=== PATIENT | female | born 1960 | race Caucasian/White ===

== ENCOUNTER 2023-11-01 00:37 | Emergency (ER) | payer OTHER ==
[~2023-11-01] VITALS: Ht 152.4 cm; Wt 88.5 kg
[2023-11-01 00:42] VITALS: BP 126/85; PULSE 76; RESP 19; TEMP 97.9; O2SAT 96
[2023-11-01] MEDS ORDERED: ALBUTEROL SULFATE/IPRATROPIU 3 ML SOL IH ONE (04:15)
[2023-11-01 04:17] VITALS: PULSE 68; RESP 24; O2SAT 97
[2023-11-01] MEDS ORDERED: ACETAMINOPHEN EXTRA STRENGTH 500 MG TAB PO ONE (04:40)
[2023-11-01] MEDS ORDERED: predniSONE 20 MG TAB PO ONE (04:40)
[2023-11-01 05:11] LABS: FLU A ANTIGEN negative (NEGATIVE); FLU B ANTIGEN NEGATIVE (NEGATIVE)
[2023-11-01 05:48] VITALS: BP 123/71; PULSE 65; RESP 16; TEMP 97.8; O2SAT 97
[2023-11-01] MEDS ORDERED: PRED20TA5 PO (06:07)
[2023-11-01] MEDS ORDERED: AZIT250T4 PO (06:07)
[2023-11-01] MEDS ORDERED: ALBU0.0912 IH (06:07)
== END 2023-11-01 06:24 | disposition home or self-care (01) ==
LOC: MED 00:37
DX: J45.901 Unspecified asthma with (acute) exacerbation (principal); J20.9 Acute bronchitis, unspecified; Z20.822 Contact with and (suspected) exposure to COVID-19; I10 Essential (primary) hypertension; Z79.899 Other long term (current) drug therapy; Z79.2 Long term (current) use of antibiotics; Z88.6 Allergy status to analgesic agent
CPT/HCPCS: 71045; 87426; 87804; 94640; 99284; J7512

== ENCOUNTER 2023-11-08 13:55 | Emergency (ER) | payer OTHER ==
[~2023-11-08] VITALS: Ht 152.4 cm; Wt 96.6 kg
[~2023-11-08 13:55] MED LIST: ALBU0.0912 IH; AZIT250T4 PO; PRED20TA5 PO
[2023-11-08 14:15] VITALS: BP 126/83; PULSE 78; RESP 20; TEMP 97.8; O2SAT 95
[2023-11-08] MEDS ORDERED: IBUP-1842 PO (15:52)
[2023-11-08] MEDS ORDERED: BENZ200C4 PO (15:52)
[2023-11-08] MEDS ORDERED: ACET-10509 PO (15:52)
[2023-11-08 16:49] LABS: FLU A ANTIGEN negative (NEGATIVE); FLU B ANTIGEN NEGATIVE (NEGATIVE)
== END 2023-11-08 16:04 | disposition home or self-care (01) ==
LOC: MED 13:55
DX: J06.9 Acute upper respiratory infection, unspecified (principal); Z20.822 Contact with and (suspected) exposure to COVID-19; J45.909 Unspecified asthma, uncomplicated; E11.9 Type 2 diabetes mellitus without complications; I10 Essential (primary) hypertension; Z79.899 Other long term (current) drug therapy; Z79.1 Long term (current) use of non-steroidal anti-inflammatories (NSAID); Z79.2 Long term (current) use of antibiotics; Z88.6 Allergy status to analgesic agent
CPT/HCPCS: 71045; 99284